=== PATIENT | male | born 2000 | race Caucasian/White ===

== ENCOUNTER 2018-12-14 02:14 | Emergency (ER) | payer OTHER ==
[~2018-12-14] VITALS: Ht 188 cm; Wt 86.2 kg
[2018-12-14 02:18] VITALS: BP 128/71
--- NOTE | 2018-12-14 02:21 | NUR ---
PT AMBULATED TO BED 3.
--- NOTE | 2018-12-14 02:25 | NUR ---
18/M PRESENTS TO ED, C/O LEFT LOWER PERIORBITAL SWELLING, WORSENING AND INCREASING IN SIZE X12 HRS. NOTED WITH MILD REDNESS AND TENDERNESS. PT STATED THAT HE WENT TO URGENT CARE YESTERDAY, DX CYSTIC ACNE. PT SEEKING SECOND OPINION. DENIES MED HX OR RX. OTC NEOSPORIN
[2018-12-14] MEDS ORDERED: IBUPROFEN 800 MG TAB PO ONE (02:40)
[2018-12-14] MEDS ORDERED: SULFAMETH/TRIMETH DS 800/160MG 1 TAB PO ONE (02:40)
[2018-12-14 02:49] VITALS: BP 128/71
--- NOTE | 2018-12-14 02:49 | NUR ---
Patient discharged with v/s stable. Written and verbal after care instructions given and explained. Patient alert, oriented and verbalized understanding of instructions. Ambulatory with steady gait. All questions addressed prior to discharge. ID band removed. Patient advised to follow up with PMD. Rx of MOTRIN, BACTRIM given. Patient educated on indication of medication including possible reaction and side effects. Opportunity to ask questions provided and answered.
== END 2018-12-14 02:49 | disposition home or self-care (01) ==
LOC: MED 02:14
DX: J34.0 Abscess, furuncle and carbuncle of nose (principal)
CPT/HCPCS: 99283